=== PATIENT | female | born 1955 | race African-American/Black ===

== ENCOUNTER 2018-08-07 10:25 | Emergency (ER) | payer MEDICAID ==
[~2018-08-07] VITALS: Ht 170.2 cm; Wt 86.0 kg
[2018-08-07] MEDS ORDERED: INSULIN REGULAR (HUMULIN R) 300UNITS/3ML SUBCUT ONE (11:15)
[2018-08-07 11:27] VITALS: BP 109/67
== END 2018-08-07 12:22 | disposition home or self-care (01) ==
LOC: ER 11:48
DX: E11.65 Type 2 diabetes mellitus with hyperglycemia (principal); Z90.710 Acquired absence of both cervix and uterus; Z98.890 Other specified postprocedural states; Z88.8 Allergy status to other drugs, medicaments and biological substances
CPT/HCPCS: 82962; 96372; 99283; J1815